=== PATIENT | male | born 1970 | race American Indian/Alaskan Native ===

== ENCOUNTER 2017-04-07 03:42 | Emergency (ER) | payer BC, OTHER ==
[2017-04-07 05:29] LABS: Basophils % (Auto) 0.6 % (0.0-1.8); Eosinophils % (Auto) 1.5 % (0.0-4.3); Hematocrit 59.3 % (35.5-45.6); Hemoglobin 19.7 gm/dl (11.8-15.2); Mean Corpuscular HGB Conc 33 % (32-34); Mean Corpuscular Hemoglobin 32 pg (28-32); Mean Corpuscular Volume 97 fl (84-94); Platelet Count 202 K/mm3 (140-440); Red Blood Count 6.11 M/mm3 (3.65-5.03); Red Cell Distribution Width 15.1 % (13.2-15.2); White Blood Count 8.8 K/mm3 (4.5-11.0)
[2017-04-07 05:38] LABS: Anion Gap 22 mmol/L; BUN/Creatinine Ratio 19.09; Blood Urea Nitrogen 21 mg/dL (9-20); Calcium 9.1 mg/dL (8.4-10.2); Carbon Dioxide 25 mmol/L (22-30); Chloride 97.8 mmol/L (98-107); Glucose 152 mg/dL (75-100); Potassium 4.1 mmol/L (3.6-5.0); Sodium 141 mmol/L (137-145)
--- NOTE | 2017-04-07 10:43 | Emergency Department Report ---
HPI - General Chief Complaint: Chest Pain Time Seen by Provider: 04/07/17 10:23 - HPI HPI: 46-year-old male presents to the emergency department with complaint of intermittent spasmodic chest discomfort since about 7 PM last night. Patient says that he was feeling "off" yesterday but still try to take a walk on the treadmill to try and drop weight but says that he was having some exertional shortness of breath at that time and then shortly afterwards he began having these chest discomforts. It occurs intermittently and there is no aggravating or relieving factors. He has not had one in the past 1.5 hours. He has a past medical history of CHF, diabetes, hypertension. He denies any history of IL, CVA, PE/DVT. 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 He has not taken anything for his symptoms prior to presentation. No recent travel or sick contacts at home. He is not a tobacco smoker. ED Past Medical Hx - Past Medical History Hx Hypertension: Yes Hx Congestive Heart Failure: Yes Hx Diabetes: Yes Hx Asthma: No Hx COPD: No Additional medical history: chronic low back pain, herniated discs. enlarged heart. sleep apnea c CPAP, Defribilator - Surgical History Hx Cholecystectomy: Yes Additional Surgical History: tonsilectomy - Social History Smoking Status: Never Smoker - Medications Home Medications: Home Medications Medication Instructions Recorded Confirmed Last Taken Type Insulin Aspart [NovoLOG Flexpen] 16 unit SQ ACHS 07/27/14 08/04/14 08/03/14 22: 00 History Aspirin [Aspirin BABY CHEW TAB] 81 mg PO QDAY #30 tab.chew 07/28/14 08/04/1408/06 22:00 Rx Carvedilol [Coreg] 12.5 mg PO BID #60 tablet 07/28/14 08/04/14 08/03/14 22:00 Rx Furosemide [Lasix] 40 mg PO DAILY #30 tablet 07/28/14 08/04/14 08/03/14 22:00 Rx Magnesium Oxide [Magnesium] 400 mg PO BID #60 capsule 07/28/14 08/04/14 22:00 Rx Potassium Chloride [K-Dur] 20 meq PO QDAY #30 tablet 07/28/14 08/04/14 08/03/14 22:00 Rx Metolazone 5 mg PO DAILY 08/04/14 08/04/14 08/03/14 22:00 History Losartan [Cozaar] 50 mg PO QDAY #30 tablet 08/09/14 Unknown Rx ED Review of Systems ROS: Stated complaint: CHEST PAIN Other details as noted in HPI Comment: All other systems reviewed and negative Constitutional: denies: chills, fever Eyes: denies: eye pain, eye discharge, vision change ENT: denies: ear pain, throat pain Respiratory: SOB with exertion. denies: shortness of breath Cardiovascular: chest pain. denies: palpitations Gastrointestinal: denies: abdominal pain, nausea, diarrhea Genitourinary: denies: urgency, dysuria Musculoskeletal: denies: back pain, joint swelling, arthralgia Skin: denies: rash, lesions Neurological: denies: headache, weakness, paresthesias Physical Exam - Physical Exam Vital Signs: Vital Signs 04/07/17 04/07/17 04:09 08:09 Temperature 98.5 F 98.3 F Pulse Rate 96 H 96 H Respiratory 16 18 Rate Blood Pressure 129/85 Blood Pressure 129/85 122/91 [Left] O2 Sat by Pulse 98 100 Oximetry Physical Exam: GENERAL: The patient is well-developed well-nourished. HEENT: Normocephalic. Atraumatic. Extraocular motions are intact. Patient has moist mucous membranes. Pupils equal reactive to light bilaterally. NECK: Supple. Trachea is midline. CHEST/LUNGS: Clear to auscultation. No tachypnea or accessory muscle use. There is no respiratory distress noted. HEART/CARDIOVASCULAR: Regular. There is no tachycardia. There is no gallop rub or murmur. ABDOMEN: Abdomen is soft, nontender. Patient has normal bowel sounds. There is no abdominal distention. Obese habitus. SKIN: One plus pitting edema to the bilateral lower extremities from the knees distally. NEURO: The patient is awake, alert, and oriented. The patient is cooperative. The patient has no focal neurologic deficits. The patient has normal speech. MUSCULOSKELETAL: There is no tenderness or deformity. There is no limitation range of motion. There is no evidence of acute injury. ED Course Vital Signs 04/07/17 04/07/17 04:09 08:09 Temperature 98.5 F 98.3 F Pulse Rate 96 H 96 H Respiratory 16 18 Rate Blood Pressure 129/85 Blood Pressure 129/85 122/91 [Left] O2 Sat by Pulse 98 100 Oximetry - Consultations Consultation #1: I spoke with Dr. manisha downey of [facility] who listened to the case presentation and agrees that the patient appears safe for discharge home at this time and they are happy to see him in the next few days in the office for an outpatient follow-up. 04/07/17 12:40 ED Medical Decision Making - Lab Data Result diagrams: 04/07/17 04:46 04/07/17 04:46 - EKG Data -: EKG Interpreted by Me EKG shows normal: sinus rhythm, axis (LAD), intervals, QRS complexes (LVH, Q waves to the inferior leads), ST-T waves Rate: normal - EKG Data When compared to previous EKG there are: previous EKG unavailable Interpretation: other (sinus rhythm, left axis deviation, LVH, Q waves inferior leads) - Radiology Data Radiology results: image reviewed interpreted by me: Chest x-ray shows mild cardio megaly but otherwise there is no signs of CHF, pneumonia or any pneumothorax. - Medical Decision Making 46-year-old male presents to the emergency department with complaint of some chest pain and/or chest wall pain that has been going on intermittently since yesterday. He had some mild exertional shortness of breath always in the treadmill yesterday but that has since resolved and has not returned. He was evaluated with physical exam, labs, imaging and EKG. EKG shows LVH and some Q waves in the inferior leads but otherwise there is no signs of ST elevation IL or dysrhythmia and the EKG appears consistent with the previous one we have from 2013. Labs are mostly unremarkable including negative troponins 2, negative d-dimer, and a low BNP level. Chest x-ray does not show any volume overload or any acute process. Vital signs are stable throughout his ED course. The patient has not had any of the chest pains for over 4 hours and even before that he said that sometimes he could feel of the chest wall twitching and that was the discomfort he mentioned. For all these reasons the patient appears safe for discharge home and cardiology is in agreement and has agreed to follow him outpatient. He will return to the emergency department immediately with any worsening of his symptoms, respiratory distress, or any acute distress. - Differential Diagnosis IL, PE, CHF, pneumonia, costochondritis, muscle spasm Critical Care Time: No Critical care attestation.: If time is entered above; I have spent that time in minutes in the direct care of this critically ill patient, excluding procedure time. ED Disposition Clinical Impression: Hypertension Qualifiers: Hypertension type: essential hypertension Qualified Code(s): I10 - Essential ( primary) hypertension Chest pain Qualifiers: Chest pain type: unspecified Qualified Code(s): R07.9 - Chest pain, unspecified Disposition: DC- TO HOME OR SELFCARE Is pt being admited?: No Condition: Stable Instructions: Chest Pain (ED), Hypertension (ED) Additional Instructions: Please call [facility] tomorrow for an appointment in the next few days with Dr. Steen. Return to the emergency department immediately with any return of her chest pain, shortness of breath, or any acute distress. Referrals: PRIMARY MD MILDRED [Primary Care Provider] - 3-5 Days JESS STEEN MD [Staff Physician] - 3-5 Days TONY POWELL MD [Staff Physician] - 3-5 Days Time of Disposition: 12:35
--- NOTE | 2017-04-07 12:25 | XRay Report ---
AP CHEST: HISTORY: chest pain AP view of the chest demonstrates a normal mediastinal and cardiac contour with clear lungs and normal bony and soft tissue structures. Single lead pacemaker terminates in the right ventricle. IMPRESSION: Unremarkable AP chest.
[2017-04-07 13:07] VITALS: BP 150/102
== END 2017-04-07 13:20 | disposition home or self-care (01) ==
LOC: ED 03:42
DX: I11.0 Hypertensive heart disease with heart failure (principal); I50.9 Heart failure, unspecified; R07.9 Chest pain, unspecified; E11.9 Type 2 diabetes mellitus without complications; Z79.82 Long term (current) use of aspirin
CPT/HCPCS: 36415; 71010; 80048; 83880; 84484; 85025; 85379; 93005; 93010; 99285

== ENCOUNTER 2019-08-01 17:57 | Observation (INO) | payer OTHER, MEDICARE ==
--- NOTE | 2019-08-01 18:32 | XRay Report ---
CHEST 2 VIEWS INDICATION / CLINICAL INFORMATION: Chest Pain. COMPARISON: None available. FINDINGS: SUPPORT DEVICES: None. HEART / MEDIASTINUM: Mild cardiomegaly LUNGS / PLEURA: Trace interstitial edema. Signer Name: Thomas Pillai MD Signed: 08/01/2019 6:27 PM Workstation Name: [id number]
[2019-08-01 18:40] LABS: Basophils # (Auto) 0.1 K/mm3 (0.0-0.1); Basophils % (Auto) 0.7 % (0.0-1.8); Eosinophils # (Auto) 0.2 K/mm3 (0.0-0.4); Eosinophils % (Auto) 1.7 % (0.0-4.3); Hematocrit 45.6 % (35.5-45.6); Hemoglobin 14.6 gm/dl (11.8-15.2); Lymphocytes # (Auto) 3.4 K/mm3 (1.2-5.4); Lymphocytes % (Auto) 37.5 % (13.4-35.0); Mean Corpuscular HGB Conc 32 % (32-34); Mean Corpuscular Volume 84 fl (84-94); Monocytes # (Auto) 0.8 K/mm3 (0.0-0.8); Monocytes % (Auto) 9.4 % (0.0-7.3); Platelet Count 254 K/mm3 (140-440); Red Blood Count 5.45 M/mm3 (3.65-5.03)
[2019-08-01 18:45] LABS: Red Cell Distribution Width 20.4 % (13.2-15.2)
[2019-08-01 18:50] LABS: BUN/Creatinine Ratio 16; Blood Urea Nitrogen 13 mg/dL (9-20); Calcium 8.9 mg/dL (8.4-10.2); Hemolysis Index 64
--- NOTE | 2019-08-01 21:51 | Emergency Department Report ---
ED Chest Pain HPI - General Chief Complaint: Chest Pain Stated Complaint: CHF WITH NEW SYMPTOMS Time Seen by Provider: 08/01/19 20:41 Source: patient Mode of arrival: Ambulatory Limitations: No Limitations - History of Present Illness MD Complaint: chest pain -: Gradual, days(s) (2) Onset: other (during emotional conversation while upset) Pain Location: substernal Pain Radiation: none Severity: mild Severity scale (0 -10): 2 Quality: tightness, aching Consistency: intermittent Improves With: nothing Worsens With: other (arguing) Context: other (Reports hx of CHF and a defibrillator. Reports followed by cardiology Dr. Steen. Reports last cardiac cath approximately 6 years ago showed no plaques. Reports his EF has improved from 13% to approximately 20- 30%. ) re: denies: nausea, vomting, diaphoresis, dyspnea, sense of impending doom Other Symptoms: denies: cough, fever, syncope, rash, acid taste in mouth, leg swelling, palpitations, burping - Related Data Home Medications Medication Instructions Recorded Confirmed Last Taken Ivabradine HCl [Corlanor] 5 mg PO BID 08/01/19 08/01/19 Unknown Liraglutide [Victoza 2-Lee] 0.6 mg SQ QDAY 08/01/19 08/01/19 Unknown Metoprolol Xl [Metoprolol 100 mg PO QDAY 08/01/19 08/01/19 Unknown SUCCINATE ER TAB] Sacubitril/Valsartan [Entresto 1 tab PO DAILY 08/01/19 08/01/19 Unknown 49-51 mg] Previous Rx's Medication Instructions Recorded Last Taken Type Apixaban [Eliquis] 5 mg PO Q12HR #60 tablet 12/15/18 Unknown Rx Allergies Allergy/AdvReac Type Severity Reaction Status Date / Time lisinopril Allergy Shortness Verified 12/12/18 18:26 of Breath Heart Score - HEART Score History: Moderately suspicious EKG: Non-specific Age: 45-65 Risk factors: 1-2 risk factors Troponin: < normal limit HEART Score: 4 ED Review of Systems ROS: Stated complaint: CHF WITH NEW SYMPTOMS Other details as noted in HPI Other: GENERAL: No weight change, fatigue, fever, chills, or night sweats SKIN: No changes in skin or hair, no itching, no rashes, no jaundice HEAD: No trauma EYES: No blurriness, tearing, itching, acute visual loss, conjunctival discoloration, or scleral icterus EARS: No hearing loss, tinnitus, vertigo, or earache NOSE: No rhinorrhea, stuffiness, sneezing, itching, or epistaxis MOUTH: No bleeding gums, hoarseness, sore throat, or swelling CARDIAC: Chest Pain. No new murmur, palpitations, dyspnea on exertion, orthopnea, PND, or edema RESPIRATORY: No shortness of breath, wheeze, cough, sputum production, hemoptysis GI: No nausea, vomiting, dysphagia, diarrhea, constipation, hematemesis, melena, hematochezia, or abdominal pain URINARY: No frequency, urgency, polyuria, dysuria, hematuria, or incontinence MUSCULOSKELETAL: No muscle weakness, joint stiffness, decrease in range of motion, redness, swelling NEUROLOGIC: No headache, syncope, loss of sensation, numbness, tingling, tremors, weakness, paralysis, seizures HEMATOLOGIC: No anemia, easy bruising, bleeding, petechiae, or purpura ENDOCRINE: No hot or cold intolerance, sweating, polyuria, polydipsia or, polyphagia no thyroid problems ED Past Medical Hx - Past Medical History Hx Hypertension: Yes Hx Congestive Heart Failure: Yes Hx Diabetes: Yes Hx Asthma: No Hx COPD: No Additional medical history: chronic low back pain, herniated discs. enlarged heart. sleep apnea c CPAP, Defribilator - Surgical History Hx Pacemaker: Yes (defibrilator) Hx Cholecystectomy: Yes Additional Surgical History: tonsilectomy - Social History Smoking Status: Current Every Day Smoker Substance Use Type: None - Medications Home Medications: Home Medications Medication Instructions Recorded Confirmed Last Taken Type Apixaban [Eliquis] 5 mg PO Q12HR #60 tablet 12/15/18 08/01/19 Unknown Rx Ivabradine HCl [Corlanor] 5 mg PO BID 08/01/19 08/01/19 Unknown History Liraglutide [Victoza 2-Lee] 0.6 mg SQ QDAY 08/01/19 08/01/19 Unknown History Metoprolol Xl [Metoprolol 100 mg PO QDAY 08/01/19 08/01/19 Unknown History SUCCINATE ER TAB] Sacubitril/Valsartan [Entresto 1 tab PO DAILY 08/01/19 08/01/19 Unknown History 49-51 mg] ED Physical Exam - General Limitations: No Limitations - Other Other exam information: GENERAL: Patient in no acute distress HEAD: Normocephalic, atraumatic EYES: PERRLA, EOM intact, no scleral icterus, no conjunctival hemorrhage, visual willis and acuity wnl NOSE: No tenderness, discharge, sinus tenderness MOUTH: No erythema, bleeding, exudate HEART: Regular rate and rhythm, no murmur, S1-S2 are auscultated, no edema, pulses are symmetric LUNGS: No respiratory distress. Bilateral breath sounds, No tachypnea, No retractions, No wheezing, rales, rhonchi ABDOMEN: Normal bowel sounds, abdomen soft, no tenderness, no rebound, no guarding, no distention, no masses, no CVA tenderness MUSCULOSKELETAL: Normal joint range of motion, no redness, no swelling, no tenderness NEUROLOGIC: GCS 15, Alert and Oriented x3, Cranial nerves intact, normal sensation, normal strength, no cerebellar deficit, NIHSS 0 SKIN: Skin is warm and dry, no wounds, no rashes ED Course Vital Signs 08/01/19 08/01/19 08/01/19 18:04 21:16 21:30 Temperature 97.9 F Pulse Rate 98 H 83 82 Respiratory 18 15 11 L Rate Blood Pressure 145/98 146/96 157/94 O2 Sat by Pulse 96 96 96 Oximetry 08/01/19 21:46 Temperature Pulse Rate 76 Respiratory 13 Rate Blood Pressure 157/94 O2 Sat by Pulse 97 Oximetry FERMIN score - Fermin Score Age > 65: (0) No Aspirin use within the Past 7 Days: (0) No 3 or more CAD Risk Factors: (0) No 2 or more Angina events in past 24 hrs: (0) No Known CAD with more than 50% Stenosis: (0) No Elevated Cardiac Markers: (0) No ST Deviation Greater than 0.5mm: (0) No FERMIN Score: 0 ED Medical Decision Making - Lab Data Result diagrams: 08/01/19 18:11 08/01/19 18:11 Laboratory Results - last 24 hr 08/01/19 08/01/19 08/01/19 18:11 18:11 21:06 WBC 8.9 RBC 5.45 H Hgb 14.6 Hct 45.6 MCV 84 MCH 27 L MCHC 32 RDW 20.4 H Plt Count 254 Lymph % (Auto) 37.5 H Oliver % (Auto) 9.4 H Eos % (Auto) 1.7 Baso % (Auto) 0.7 Lymph # 3.4 Oliver # 0.8 Eos # 0.2 Baso # 0.1 Seg Neutrophils % 50.7 Seg Neutrophils # 4.5 Sodium 139 Potassium 4.1 Chloride 101.6 Carbon Dioxide 25 Anion Gap 17 BUN 13 Creatinine 0.8 Estimated GFR > 60 BUN/Creatinine Ratio 16 Glucose 135 H Calcium 8.9 Troponin T < 0.010 < 0.010 - EKG Data When compared to previous EKG there are: no significant change - Radiology Data Radiology results: report reviewed - Medical Decision Making Patient comfortable. Reports symptom improvement. Updated with results. Plan admit for further evaluation. Hospitalist updated and accepts admission. Critical care attestation.: If time is entered above; I have spent that time in minutes in the direct care of this critically ill patient, excluding procedure time. ED Disposition Clinical Impression: Chest pain Qualifiers: Chest pain type: unspecified Qualified Code(s): R07.9 - Chest pain, unspecified Disposition: OP ADMIT IP TO THIS HOSP Is pt being admited?: Yes Condition: Stable Instructions: Chest Pain (ED) Referrals: PRIMARY CARE, [Primary Care Provider] - 3-5 Days
[2019-08-01] MEDS ORDERED: ONDANSETRON 4 MG/2 ML INJ IV PRN (23:11)
[2019-08-01] MEDS ORDERED: MORPHINE 2 MG/1 ML INJ IV PRN (23:11)
[2019-08-01] MEDS ORDERED: ACETAMINOPHEN 325 MG TAB PO PRN (23:11)
--- NOTE | 2019-08-01 23:11 | History and Physical Report ---
History of Present Illness Date of examination: 08/01/19 History of present illness: 48-year-old man a history of CHF, sleep apnea, hypertension, diabetes, A. fib, comes to the emergency room because of chest pain. Pain started yesterday after arguing with some children. Pain is in the epigastric area, tightmess , inter mittent every 3 minutes, intensity 4/10, no radiation, cannot identify exacerbating or relieving factors. Denies nausea, vomiting, shortness of breath, palpitations, diaphoresis Review of systems Constitutional: no weight loss, chills, fever Ears, eyes, nose, mouth and throat: no nasal congestion, no nasal discharge, no sinus pressure, no vision change, no red eye. Neck: No neck pain or rigidity. Cardiovascular: no palpitations Respiratory: no cough, shortness of breath Gastrointestinal: no hematochezia, abdominal pain Genitourinary : no frequency , no hematuria Musculoskeletal: no joint swelling or muscle ache Integumentary: no rash, no pruritis Neurological: no parathesias, no focal weakness Endocrine: no cold or heat intolerance, no polyuria or polydipsia Hematologic/Lymphatic: no easy bruising, no easy bleeding, no gland swelling Allergic/Immunologic: no urticaria, no angioedema. PAST MEDICAL HISTORY: CHF, sleep apnea, hypertension, diabetes, A. fib PAST SURGICAL HISTORY: Cholecystectomy, tonsillectomy, varicose vein surgery SOCIAL HISTORY: Denies alcohol, drugs, tobacco FAMILY HISTORY: Hypertension, CAD Medications and Allergies Allergies Allergy/AdvReac Type Severity Reaction Status Date / Time lisinopril Allergy Shortness Verified 12/12/18 18:26 of Breath Home Medications Medication Instructions Recorded Confirmed Last Taken Type Apixaban [Eliquis] 5 mg PO Q12HR #60 tablet 12/15/18 08/01/19 Unknown Rx Ivabradine HCl [Corlanor] 5 mg PO BID 08/01/19 08/01/19 Unknown History Liraglutide [Victoza 2-Lee] 0.6 mg SQ QDAY 08/01/19 08/01/19 Unknown History Metoprolol Xl [Metoprolol 100 mg PO QDAY 08/01/19 08/01/19 Unknown History SUCCINATE ER TAB] Sacubitril/Valsartan [Entresto 1 tab PO DAILY 08/01/19 08/01/19 Unknown History 49-51 mg] Exam - Physical Exam Narrative exam: General Apperance: The patient lying in bed, breathing comfortable HEENT: Normocephalic, atraumatic. Pupils equally round and reactive to light, EOMI, no sclericterus or JVD or thyromegaly or nodule. , no carotid bruit, mucous membranes moist, no exudate or erythema Heart: S1-S2 Lungs: Clear to auscultation bilaterally, breathing comfortable Abdomen: Positive bowel sounds, soft, nontender, nondistended, no organomegaly Extremities: No edema cyanosis clubbing Skin: no rash, nodule, warm and dry Neuro: cranial nerves 2-12 intact, speech is fluent, motor/sensory intact - Constitutional Vitals: Temp Pulse Resp BP Pulse Ox 97.9 F 76 13 157/94 97 08/01/19 18:04 08/01/19 21:46 08/01/19 21:46 08/01/19 21:46 08/01/19 21:46 Results - Labs CBC & Chem 7: 08/01/19 18:11 08/01/19 18:11 Labs: Abnormal lab results 08/01/19 08/01/19 Range/Units 18:11 18:11 RBC 5.45 H (3.65-5.03) M/mm3 MCH 27 L (28-32) pg RDW 20.4 H (13.2-15.2) % Lymph % (Auto) 37.5 H (13.4-35.0) % [place] % (Auto) 9.4 H (0.0-7.3) % Glucose 135 H (75-100) mg/dL Assessment and Plan Assessment chest pain A. fib CHF, stable Hypertension Diabetes Sleep apnea Plan Admit to medicine Check cardiac enzymes,obtain stress test, consult cardiology Check fingersticks, initiate insulin sliding-scale Continue appropriate outpatient medications DVT prophylaxis
[2019-08-01] MEDS ORDERED: DEXTROSE 50% IN WATER (25GM) 50 ML SYRINGE IV PRN (23:22)
[2019-08-01] MEDS ORDERED: FUROSEMIDE 40 MG/4 ML INJ IV ONE (23:44)
[2019-08-02 00:59] LABS: Creatine Kinase MB 1.3 ng/mL (0.0-4.0)
[2019-08-02 07:46] LABS: Basophils # (Auto) 0.1 K/mm3 (0.0-0.1); Eosinophils # (Auto) 0.2 K/mm3 (0.0-0.4); Eosinophils % (Auto) 3.1 % (0.0-4.3); Hematocrit 46.1 % (35.5-45.6); Hemoglobin 14.6 gm/dl (11.8-15.2); Lymphocytes # (Auto) 2.8 K/mm3 (1.2-5.4); Lymphocytes % (Auto) 35.4 % (13.4-35.0); Mean Corpuscular HGB Conc 32 % (32-34); Mean Corpuscular Volume 84 fl (84-94); Monocytes # (Auto) 0.6 K/mm3 (0.0-0.8); Monocytes % (Auto) 7.5 % (0.0-7.3); Platelet Count 250 K/mm3 (140-440)
[2019-08-02 07:57] LABS: Red Cell Distribution Width 20.4 % (13.2-15.2)
[2019-08-02 08:05] LABS: BUN/Creatinine Ratio 17; Blood Urea Nitrogen 12 mg/dL (9-20); Calcium 8.9 mg/dL (8.4-10.2); Hemolysis Index 6
[2019-08-02 08:07] LABS: Creatine Kinase MB 1.3 ng/mL (0.0-4.0)
[2019-08-02] MEDS: INSULIN LISPRO 100 UNIT/ML SUB-Q SCH ×2 (08:20→11:30)
[2019-08-02] MEDS ORDERED: METOPROLOL SUCCINATE XL 100 MG TAB PO SCH (10:00)
[2019-08-02] MEDS ORDERED: ENOXAPARIN 40 MG/0.4 ML INJ SUB-Q SCH (10:00)
[2019-08-02] MEDS ORDERED: APIXABAN 5 MG TAB PO SCH (10:00)
[2019-08-02] MEDS ORDERED: SACUBITRIL/VALSARTAN 49-51 MG TAB PO SCH (10:00)
[2019-08-02] MEDS ORDERED: IVABRADINE HCL 5 MG PO SCH (10:00)
[2019-08-02] MEDS ORDERED: ENOXAPARIN 30 MG/0.3 ML INJ SUB-Q SCH (10:00)
[2019-08-02] MEDS ORDERED: LIRAGLUTIDE 0.6 MG SQ SCH (10:00)
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
[2019-08-02 12:13] VITALS: BP 143/94
--- NOTE | 2019-08-02 12:35 | Discharge Summary ---
Providers - Providers Date of Admission: 08/01/19 23:11 Date of discharge: 08/02/19 Attending physician: EARNESTINE VASQUEZ 08/01/19 23:11 Consult to Physician [CONS] Routine Comment: Consulting Provider: JESS KENYON Physician Instructions: Reason For Exam: cp Primary care physician: JUAN CARLOS KENYON Hospitalization Condition: Stable Pertinent studies: CXR: Trace interstitial edema Procedures: None Hospital course: Final discharge diagnosis: Acute atypical chest pain, likely stress-induced Chronic A. fib on oral anticoagulation Chronic systolic HF with EF of 20-25% s/p AICD placement Hypertension DM2 Obstructive sleep apnea Morbid obesity with BMI of 44.9 Hospital course: Pt was admitted and placed on chest pain pathway. Serial troponin levels done were negative. For his other comorbidities, he was continued on his home medications. Thereafter, he was evaluated by the machine applicator cementer who recommended no further investigative testing. He was then cleared for discharge with clinic follow-up. At discharge, patient was chest pain-free. Disposition: DC TO HOME OR SELFCARE Time spent for discharge: 30 Minutes Core Measure Documentation - Palliative Care Palliative Care/ Comfort Measures: Not Applicable - Core Measures Any of the following diagnoses?: none Exam - Constitutional Vitals: Temp Pulse Resp BP Pulse Ox 97.9 F 84 19 143/94 99 08/02/19 11:30 08/02/19 11:30 08/02/19 11:30 08/02/19 11:30 08/02/19 11:30 General appearance: Present: no acute distress, obese - EENT Eyes: Present: PERRL, EOM intact ENT: hearing intact, clear oral mucosa - Neck Neck: Present: supple, normal ROM - Respiratory Respiratory effort: normal Respiratory: bilateral: CTA - Cardiovascular Rhythm: regular Heart Sounds: Present: S1 & S2. Absent: rub, click - Extremities Extremities: pulses symmetrical, No edema - Abdominal General gastrointestinal: Present: soft, non-tender, non-distended, normal bowel sounds Male genitourinary: Present: deferred - Integumentary Integumentary: Present: clear, warm, dry - Musculoskeletal Musculoskeletal: gait normal, strength equal bilaterally - Psychiatric Psychiatric: appropriate mood/affect, intact judgment & insight - Neurologic Neurologic: CNII-XII intact, moves all extremities Plan Follow up with: PRIMARY CARE, [Referring] - 3-5 Days
== END 2019-08-02 14:00 | disposition home or self-care (01) ==
LOC: ED 17:57 → 4A 23:11
PROVIDERS: ADMIT Internal Medicine; ATTEND Internal Medicine
DX: R07.89 Other chest pain (principal); I11.0 Hypertensive heart disease with heart failure; I50.9 Heart failure, unspecified; I48.91 Unspecified atrial fibrillation; E11.9 Type 2 diabetes mellitus without complications; G47.30 Sleep apnea, unspecified; Z90.49 Acquired absence of other specified parts of digestive tract; Z98.890 Other specified postprocedural states
CPT/HCPCS: 36415; 71046; 80048; 82550; 82553; 82962; 84484; 85025; 87116; 93005; 93010; 96374; 99284; G0378; J1940

== ENCOUNTER 2019-10-31 03:20 | Emergency (ER) | payer OTHER, MEDICARE ==
--- NOTE | 2019-10-31 04:12 | XRay Report ---
CHEST 1 VIEW 10/31/2019 3:56 AM INDICATION / CLINICAL INFORMATION: Chest pain for 2 days. COMPARISON: 2 views of the chest from 08/01/2019. FINDINGS: SUPPORT DEVICES: Stable left ICD. HEART / MEDIASTINUM: Stable. LUNGS / PLEURA: No significant pulmonary or pleural abnormality. No pneumothorax. ADDITIONAL FINDINGS: No significant additional findings. IMPRESSION: 1. No acute abnormality of the chest. 2. Stable mild cardiomegaly. Signer Name: Zach Rodriguez MD Signed: 10/31/2019 4:08 AM Workstation Name: [id number]
[2019-10-31 04:16] LABS: Basophils # (Auto) 0.1 K/mm3 (0.0-0.1); Basophils % (Auto) 1.1 % (0.0-1.8); Eosinophils # (Auto) 0.1 K/mm3 (0.0-0.4); Eosinophils % (Auto) 0.9 % (0.0-4.3); Hematocrit 44.9 % (35.5-45.6); Hemoglobin 14.2 gm/dl (11.8-15.2); Lymphocytes # (Auto) 3.6 K/mm3 (1.2-5.4); Lymphocytes % (Auto) 34.5 % (13.4-35.0); Mean Corpuscular HGB Conc 32 % (32-34); Mean Corpuscular Volume 81 fl (84-94); Monocytes % (Auto) 9.3 % (0.0-7.3); Platelet Count 326 K/mm3 (140-440); Red Blood Count 5.57 M/mm3 (3.65-5.03); Red Cell Distribution Width 17.4 % (13.2-15.2)
[2019-10-31 04:36] LABS: BUN/Creatinine Ratio 16; Blood Urea Nitrogen 13 mg/dL (9-20); Calcium 8.7 mg/dL (8.4-10.2); Hemolysis Index 38
[2019-10-31] MEDS ORDERED: KETOROLAC 60 MG/2 ML INJ IM ONE (06:22)
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
[2019-10-31 08:32] VITALS: BP 104/70
== END 2019-10-31 08:32 | disposition home or self-care (01) ==
LOC: ED 03:20
DX: R07.89 Other chest pain (principal); M54.9 Dorsalgia, unspecified; I11.0 Hypertensive heart disease with heart failure; E11.9 Type 2 diabetes mellitus without complications; I50.9 Heart failure, unspecified; Z98.890 Other specified postprocedural states; Z90.49 Acquired absence of other specified parts of digestive tract; Z79.899 Other long term (current) drug therapy; Z88.8 Allergy status to other drugs, medicaments and biological substances
CPT/HCPCS: 36415; 71045; 80048; 84484; 85025; 93005; 93010; 96372; 99284; J1885

== ENCOUNTER 2020-07-04 11:44 | Emergency (ER) | payer OTHER, MEDICARE ==
[2020-07-04 12:04] VITALS: BP 116/69
--- NOTE | 2020-07-04 17:04 | Emergency Department Report ---
ED Dizziness HPI - General Chief Complaint: Dizziness Stated Complaint: LOW BLOOD PRESSURE/DIZZY Time Seen by Provider: 07/04/20 17:02 Source: patient Mode of arrival: Ambulatory Limitations: No Limitations - History of Present Illness Initial Comments: Chief complaint: I think my blood pressure was too low. The medication is too strong." HPI this is a 49-year-old male with history of congestive heart failure, atrial fibrillation, diabetes mellitus who presents with lightheadedness for the past 3 days. He thinks that his blood pressure medicine is too strong for him. When he would stand up from a sitting position he developed like headedness. He takes four antihypertensive medications and in addition to diuretic spironolactone. Over the past 4 months he has intentionally lost 80 pounds with diet and exercise. Today while standing in line to vote, he felt as if he is going to pass out after prolonged standing. He took his blood pressure which was low 85/55 on several readings. He plans to stop taking 3 his antihypertensive medications until he sees his disability benefits specialist Dr. Steen. Complaint: dizziness, lightheadedness -: Gradual, days(s) (3) Timing: gradual onset Description: lightheadedness History of Same: No History of Trauma: No Severity: mild Improves With: rest Worsens With: position Associated Symptoms: denies other symptoms - Related Data Home Medications Medication Instructions Recorded Confirmed Last Taken Ivabradine HCl [Corlanor] 5 mg PO BID 08/01/19 08/01/19 Unknown Liraglutide [Victoza 2-Lee] 0.6 mg SQ QDAY 08/01/19 08/01/19 Unknown Metoprolol Xl [Metoprolol 100 mg PO QDAY 08/01/19 08/01/19 Unknown SUCCINATE ER TAB] Sacubitril/Valsartan [Entresto 1 tab PO DAILY 08/01/19 08/01/19 Unknown 49-51 mg] Previous Rx's Medication Instructions Recorded Last Taken Type Apixaban [Eliquis] 5 mg PO Q12HR #60 tablet 12/15/18 Unknown Rx Cyclobenzaprine [Flexeril] 10 mg PO TID PRN #12 tablet 10/31/19 Unknown Rx Famotidine [Pepcid] 20 mg PO BID #20 tablet 03/31/20 Unknown Rx HYDROcodone/APAP 5-325 [[place] 1 each PO Q6HR PRN #14 tablet 03/31/20 Unknown Rx 5/325] Ondansetron [Zofran Odt] 4 mg PO Q8HR PRN #14 tab.rapdis 03/31/20 Unknown Rx Allergies Allergy/AdvReac Type Severity Reaction Status Date / Time lisinopril Allergy Shortness Verified 12/12/18 18:26 of Breath ED Review of Systems ROS: Stated complaint: LOW BLOOD PRESSURE/DIZZY Other details as noted in HPI Comment: All other systems reviewed and negative Constitutional: denies: fever, malaise Respiratory: denies: cough, shortness of breath Cardiovascular: denies: chest pain Gastrointestinal: denies: abdominal pain, nausea, vomiting ED Past Medical Hx - Past Medical History Hx Hypertension: Yes Hx Congestive Heart Failure: Yes Hx Diabetes: Yes Hx Asthma: No Hx COPD: No Additional medical history: chronic low back pain, herniated discs. enlarged heart. sleep apnea c CPAP, Defribilator - Surgical History Hx Pacemaker: Yes (defibrilator) Hx Internal Defibrillator: Yes Hx Cholecystectomy: Yes Additional Surgical History: tonsilectomy - Social History Smoking Status: Never Smoker Substance Use Type: None - Medications Home Medications: Home Medications Medication Instructions Recorded Confirmed Last Taken Type Apixaban [Eliquis] 5 mg PO Q12HR #60 tablet 12/15/18 08/01/19 Unknown Rx Ivabradine HCl [Corlanor] 5 mg PO BID 08/01/19 08/01/19 Unknown History Liraglutide [Victoza 2-Lee] 0.6 mg SQ QDAY 08/01/19 08/01/19 Unknown History Metoprolol Xl [Metoprolol 100 mg PO QDAY 08/01/19 08/01/19 Unknown History SUCCINATE ER TAB] Sacubitril/Valsartan [Entresto 1 tab PO DAILY 08/01/19 08/01/19 Unknown History 49-51 mg] Cyclobenzaprine [Flexeril] 10 mg PO TID PRN #12 tablet 10/31/19 Unknown Rx Famotidine [Pepcid] 20 mg PO BID #20 tablet 03/31/20 Unknown Rx HYDROcodone/APAP 5-325 [[place] 1 each PO Q6HR PRN #14 tablet 03/31/20 Unknown Rx 5/325] Ondansetron [Zofran Odt] 4 mg PO Q8HR PRN #14 tab.rapdis 03/31/20 Unknown Rx ED Physical Exam - General Limitations: No Limitations General appearance: alert, in no apparent distress - Head Head exam: Present: atraumatic, normocephalic - Eye Eye exam: Present: normal appearance - ENT ENT exam: Present: mucous membranes moist - Neck Neck exam: Present: normal inspection, full ROM - Respiratory Respiratory exam: Present: normal lung sounds bilaterally. Absent: respiratory distress, wheezes, rales, rhonchi - Cardiovascular Cardiovascular Exam: Present: regular rate, normal rhythm, normal heart sounds. Absent: systolic murmur, diastolic murmur, rubs, gallop - GI/Abdominal GI/Abdominal exam: Present: soft, normal bowel sounds. Absent: distended, tenderness, guarding, rebound - Rectal Rectal exam: Present: deferred - Extremities Exam Extremities exam: Present: normal inspection - Back Exam Back exam: Present: normal inspection - Neurological Exam Neurological exam: Present: alert, oriented X3 - Psychiatric Psychiatric exam: Present: normal affect, normal mood - Skin Skin exam: Present: warm, dry, intact, normal color. Absent: rash ED Course Vital Signs 07/04/20 12:01 Temperature 97.8 F Pulse Rate 72 Respiratory 20 Rate Blood Pressure 116/69 [Right] O2 Sat by Pulse 96 Oximetry ED Medical Decision Making - Medical Decision Making This is a 49-year-old male with history of atrial fibrillation, congestive heart failure and diabetes mellitus who presents with hypotension. I agree with patient. After intentional 80 pound weight loss over the past 4 months, he will not need his entire antihypertensive medication regimen. I encouraged him to continue taking diuretic spironolactone. He will continue to take Eliquis. He plans to hold his antihypertensive medications until he is seen by Dr. Celsa Rubin next week. He will also monitor his blood pressure with his home blood pressure cuff. I do not suspect arrhythmia, anemia, metabolic derangement as a cause of his lightheadedness. He describes orthostasis with documented low blood pressure. Patient understands return precautions. Also provided referral to outpatient medicine physician. Critical care attestation.: If time is entered above; I have spent that time in minutes in the direct care of this critically ill patient, excluding procedure time. ED Disposition Clinical Impression: Iatrogenic hypotension, Recent weight loss, Lightheadedness Disposition: DC-01 TO HOME OR SELFCARE Is pt being admited?: No Does the pt Need Aspirin: No Condition: Stable Additional Instructions: Please monitor your blood pressure readings on a daily basis. Please document the readings in order to discuss with your disability benefits specialist. Referrals: JESS STEEN MD [Staff Physician] - 7-10 days
== END 2020-07-04 17:14 | disposition home or self-care (01) ==
LOC: ED 11:44
DX: I95.89 Other hypotension (principal); R63.4 Abnormal weight loss; R42 Dizziness and giddiness; I11.0 Hypertensive heart disease with heart failure; I50.9 Heart failure, unspecified; E11.9 Type 2 diabetes mellitus without complications; Z90.49 Acquired absence of other specified parts of digestive tract; Z88.8 Allergy status to other drugs, medicaments and biological substances; Z79.899 Other long term (current) drug therapy; Z95.810 Presence of automatic (implantable) cardiac defibrillator
CPT/HCPCS: 99282

== ENCOUNTER 2020-11-19 16:39 | Emergency (ER) | payer MEDICARE, OTHER ==
[2020-11-19 16:55] VITALS: BP 134/87
--- NOTE | 2020-11-19 17:08 | Emergency Department Report ---
ED General Adult HPI - General Chief complaint: Extremity Injury, Lower Stated complaint: RIGHT FOOT BIG TOE INFECTION Time Seen by Provider: 11/19/20 16:46 Source: patient Mode of arrival: Ambulatory Limitations: No Limitations - History of Present Illness Initial comments: 50-year-old male with type 2 diabetes presents to the ER today complaint of righ t great toe pain and stating that his nail is falling off his right great toe. Patient states that he accidentally injured his right great toe back in July. He states he noticed that he had blood only the toenail after the injury. He states that he did have some pain after the injury but it went away but gradually the toenail started to turn color, and started to become loose. He states that in the past couple days he noticed that the toenail was starting to fall off. Yesterday he started to have pain around the nail folds and to the fat pad of the right great toenail. He reports numbness to toe and he reports redness around the lateral nail fold and around the fat pad since yesterday. He states that when he got injured back in July he did not seek medical treatment. He states that he did see his clinical educator twice since the injury but it was for a different issue. He did have x-ray of both feet during his podiatry visit. He states that he does have an appointment with his clinical educator this coming , given the appearance of the toenail and his toe he was concerned decided come and get checked out. He denies any fever or chills or any other symptoms at this time. MD Complaint: Right great Toe pain/Nail falling off -: Gradual, month(s) - Related Data Home Medications Medication Instructions Recorded Confirmed Last Taken Ivabradine HCl [Corlanor] 5 mg PO BID 08/01/19 08/01/19 Unknown Liraglutide [Victoza 2-Lee] 0.6 mg SQ QDAY 08/01/19 08/01/19 Unknown Metoprolol Xl [Metoprolol 100 mg PO QDAY 08/01/19 08/01/19 Unknown SUCCINATE ER TAB] Sacubitril/Valsartan [Entresto 1 tab PO DAILY 08/01/19 08/01/19 Unknown 49-51 mg] Previous Rx's Medication Instructions Recorded Last Taken Type Apixaban [Eliquis] 5 mg PO Q12HR #60 tablet 03/25/19 Unknown Rx Cyclobenzaprine [Flexeril] 10 mg PO TID PRN #12 tablet 10/31/19 Unknown Rx Famotidine [Pepcid] 20 mg PO BID #20 tablet 03/31/20 Unknown Rx Ondansetron [Zofran Odt] 4 mg PO Q8HR PRN #14 tab.rapdis 03/31/20 Unknown Rx HYDROcodone/APAP 5-325 [[place] 1 each PO Q6HR PRN #12 tablet 11/19/20 Unknown Rx 5-325 mg TAB] cephALEXin [Keflex] 500 mg PO Q6HR #40 capsule 11/19/20 Unknown Rx Allergies Allergy/AdvReac Type Severity Reaction Status Date / Time lisinopril Allergy Shortness Verified 12/12/18 18:26 of Breath ED Review of Systems ROS: Stated complaint: RIGHT FOOT BIG TOE INFECTION Other details as noted in HPI Comment: All other systems reviewed and negative Musculoskeletal: other (Right great toe pain and swelling) Skin: change in hair/nails ED Past Medical Hx - Past Medical History Previous Medical History?: Yes Hx Hypertension: Yes Hx Congestive Heart Failure: Yes Hx Diabetes: Yes Hx Asthma: No Hx COPD: No Additional medical history: chronic low back pain, herniated discs. enlarged heart. sleep apnea c CPAP, Defribilator - Surgical History Past Surgical History?: Yes Hx Pacemaker: Yes (defibrilator) Hx Internal Defibrillator: Yes Hx Cholecystectomy: Yes Additional Surgical History: tonsilectomy - Social History Smoking Status: Never Smoker Substance Use Type: Alcohol - Medications Home Medications: Home Medications Medication Instructions Recorded Confirmed Last Taken Type Apixaban [Eliquis] 5 mg PO Q12HR #60 tablet 12/15/18 08/01/19 Unknown Rx Ivabradine HCl [Corlanor] 5 mg PO BID 08/01/19 08/01/19 Unknown History Liraglutide [Victoza 2-Lee] 0.6 mg SQ QDAY 08/01/19 08/01/19 Unknown History Metoprolol Xl [Metoprolol 100 mg PO QDAY 08/01/19 08/01/19 Unknown History SUCCINATE ER TAB] Sacubitril/Valsartan [Entresto 1 tab PO DAILY 08/01/19 08/01/19 Unknown History 49-51 mg] Cyclobenzaprine [Flexeril] 10 mg PO TID PRN #12 tablet 10/31/19 Unknown Rx Famotidine [Pepcid] 20 mg PO BID #20 tablet 03/31/20 Unknown Rx Ondansetron [Zofran Odt] 4 mg PO Q8HR PRN #14 tab.rapdis 03/31/20 Unknown Rx HYDROcodone/APAP 5-325 [[place] 1 each PO Q6HR PRN #12 tablet 11/19/20 Unknown Rx 5-325 mg TAB] cephALEXin [Keflex] 500 mg PO Q6HR #40 capsule 11/19/20 Unknown Rx ED Physical Exam - General Limitations: No Limitations General appearance: alert, in no apparent distress - Respiratory Respiratory exam: Absent: respiratory distress - Cardiovascular Cardiovascular Exam: Present: regular rate - Extremities Exam Extremities exam: Present: other (Right great toe nail is bluish/juanjo discoloration and is almost fully avulsed. He does have mild swelling and erythema and moderate ttp mainly lateral nail fold on the medial aspect of toe and to fat pad of toe; No streaking redness. cap refill nl, flex and ext of toe nl, sensation toe intact. ) - Neurological Exam Neurological exam: Present: alert, oriented X3, CN II-XII intact, normal gait - Psychiatric Psychiatric exam: Present: normal mood ED Course Vital Signs 11/19/20 16:52 Temperature 98.2 F Pulse Rate 89 Respiratory 18 Rate Blood Pressure 134/87 O2 Sat by Pulse 96 Oximetry ED Medical Decision Making - Medical Decision Making Pt likely had subungual hematoma from his injury July causing toenail avulsi on. on exam today pt right great toenail is noted to be hanging on by small peice of skin in lateral nail fold. Its almost fully avulsed. I clipped the small peice of skin holding toenail with a scissor and removed toenail. No active bleeding. Dried blood noted underneath toenail and mildly to nail bed. No apparent open wounds noted to nail bed or fold. There is mild swelling and cellulitis along the lateral nail fold and the fat pad of the distal great toe. No streaking cellulitis. No evidence of infectious tenosynovitis or gangrene. No indication for IV antibiotics or work-up at this time. Patient will be started on oral antibiotics. He was instructed to keep his appoint with his clinical educator this . Patient expressed understanding of instructions and agree with plan. Patient was stable at time of discharge Critical care attestation.: If time is entered above; I have spent that time in minutes in the direct care of this critically ill patient, excluding procedure time. ED Disposition Clinical Impression: Cellulitis of toe of right foot, Toenail avulsion Disposition: TO HOME OR SELFCARE Is pt being admited?: No Does the pt Need Aspirin: No Condition: Stable Instructions: Nail Avulsion, Cellulitis, Adult, [id number] Additional Instructions: Take the antibiotics as prescribed. Keep toe clean soap and water, dry well, then apply neosporin after cleaning. Keep Your appointment with Dr Galeas . Return to ED if worse. Prescriptions: cephALEXin [Keflex] 500 mg PO Q6HR #40 capsule HYDROcodone/APAP 5-325 [[place] 5-325 mg TAB] 1 each PO Q6HR PRN #12 tablet PRN Reason: Pain Referrals: YADIRA GALEAS DPM [Staff Physician] - 3-5 Days Time of Disposition: 17:07
== END 2020-11-19 17:10 | disposition home or self-care (01) ==
LOC: ED 16:39
DX: S91.201A Unspecified open wound of right great toe with damage to nail, initial encounter (principal); L03.031 Cellulitis of right toe; I11.0 Hypertensive heart disease with heart failure; I50.9 Heart failure, unspecified; E11.9 Type 2 diabetes mellitus without complications; Z90.49 Acquired absence of other specified parts of digestive tract; Z90.89 Acquired absence of other organs; Z98.890 Other specified postprocedural states; Z79.899 Other long term (current) drug therapy; Z88.8 Allergy status to other drugs, medicaments and biological substances; X58.XXXA Exposure to other specified factors, initial encounter; Y93.89 Activity, other specified; Y92.89 Other specified places as the place of occurrence of the external cause; Y99.8 Other external cause status
CPT/HCPCS: 99282

== ENCOUNTER 2021-01-27 18:33 | Emergency (ER) | payer OTHER ==
[2021-01-27 18:54] VITALS: BP 141/86
--- NOTE | 2021-01-27 20:26 | XRay Report ---
LEFT SHOULDER 3 VIEW(S) INDICATION / CLINICAL INFORMATION: Fall left shoulder pain COMPARISON: None available. FINDINGS: BONES / JOINT(S): No acute fracture or subluxation. Mild degenerative changes. SOFT TISSUES: No significant abnormality. ADDITIONAL FINDINGS: None. Signer Name: Lowell Le MD Signed: 01/27/2021 8:22 PM Workstation Name: [id number]
[2021-01-28] MEDS ORDERED: KETOROLAC 30 MG/1 ML INJ IM ONE (02:44)
--- NOTE | 2021-01-28 02:44 | Emergency Department Report ---
ED General Adult HPI - General Chief complaint: Shoulder Injury Stated complaint: FALL Time Seen by Provider: 01/28/21 02:34 Source: patient Mode of arrival: Ambulatory Limitations: No Limitations - History of Present Illness Initial comments: 50-year-old -[place] male patient presents with complaints of left shoulder pain after a fall injury 2 days ago. He states the pain occurs mostly with movement of the shoulder and denies any numbness/tingling/weakness in his arm or hand. Patient states his range of motion is limited by the pain. Pain worsened after taking a hot shower per patient. He denies any other injuries. Patient rates his pain as a 9/10 in severity and states it did not improve with Tylenol -: Sudden Severity scale (0 -10): 10 - Related Data Home Medications Medication Instructions Recorded Confirmed Last Taken Ivabradine HCl [Corlanor] 5 mg PO BID 08/01/19 08/01/19 Unknown Liraglutide [Victoza 2-Lee] 0.6 mg SQ QDAY 08/01/19 08/01/19 Unknown Metoprolol Xl [Metoprolol 100 mg PO QDAY 08/01/19 08/01/19 Unknown SUCCINATE ER TAB] Sacubitril/Valsartan [Entresto 1 tab PO DAILY 08/01/19 08/01/19 Unknown 49-51 mg] Previous Rx's Medication Instructions Recorded Last Taken Type Apixaban [Eliquis] 5 mg PO Q12HR #60 tablet 12/15/18 Unknown Rx Cyclobenzaprine [Flexeril] 10 mg PO TID PRN #12 tablet 10/31/19 Unknown Rx Famotidine [Pepcid] 20 mg PO BID #20 tablet 03/31/20 Unknown Rx Ondansetron [Zofran Odt] 4 mg PO Q8HR PRN #14 tab.rapdis 03/31/20 Unknown Rx HYDROcodone/APAP 5-325 [[place] 1 each PO Q6HR PRN #12 tablet 11/19/20 Unknown Rx 5-325 mg TAB] cephALEXin [Keflex] 500 mg PO Q6HR #40 capsule 11/19/20 Unknown Rx Naproxen 500 mg PO BID PRN #20 tablet 01/28/21 Unknown Rx methocarbamoL [Methocarbamol] 1,000 mg PO TID PRN #20 tablet 01/28/21 Unknown Rx Allergies Allergy/AdvReac Type Severity Reaction Status Date / Time lisinopril Allergy Shortness Verified 12/12/18 18:26 of Breath ED Review of Systems ROS: Stated complaint: FALL Other details as noted in HPI Respiratory: denies: shortness of breath Cardiovascular: denies: chest pain Musculoskeletal: arthralgia. denies: joint swelling Neurological: denies: numbness, paresthesias ED Past Medical Hx - Past Medical History Previous Medical History?: Yes Hx Hypertension: Yes Hx Congestive Heart Failure: Yes Hx Diabetes: Yes Hx Asthma: No Hx COPD: No Additional medical history: chronic low back pain, herniated discs. enlarged heart. sleep apnea c CPAP, Defribilator - Surgical History Past Surgical History?: Yes Hx Pacemaker: Yes (defibrilator) Hx Internal Defibrillator: Yes Hx Cholecystectomy: Yes Additional Surgical History: tonsilectomy - Social History Smoking Status: Never Smoker Substance Use Type: Alcohol - Medications Home Medications: Home Medications Medication Instructions Recorded Confirmed Last Taken Type Apixaban [Eliquis] 5 mg PO Q12HR #60 tablet 12/15/18 08/01/19 Unknown Rx Ivabradine HCl [Corlanor] 5 mg PO BID 08/01/19 08/01/19 Unknown History Liraglutide [Victoza 2-Lee] 0.6 mg SQ QDAY 08/01/19 08/01/19 Unknown History Metoprolol Xl [Metoprolol 100 mg PO QDAY 08/01/19 08/01/19 Unknown History SUCCINATE ER TAB] Sacubitril/Valsartan [Entresto 1 tab PO DAILY 08/01/19 08/01/19 Unknown History 49-51 mg] Cyclobenzaprine [Flexeril] 10 mg PO TID PRN #12 tablet 10/31/19 Unknown Rx Famotidine [Pepcid] 20 mg PO BID #20 tablet 03/31/20 Unknown Rx Ondansetron [Zofran Odt] 4 mg PO Q8HR PRN #14 tab.rapdis 03/31/20 Unknown Rx HYDROcodone/APAP 5-325 [[place] 1 each PO Q6HR PRN #12 tablet 11/19/20 Unknown Rx 5-325 mg TAB] cephALEXin [Keflex] 500 mg PO Q6HR #40 capsule 11/19/20 Unknown Rx Naproxen 500 mg PO BID PRN #20 tablet 01/28/21 Unknown Rx methocarbamoL [Methocarbamol] 1,000 mg PO TID PRN #20 tablet 01/28/21 Unknown Rx ED Physical Exam - General Limitations: No Limitations General appearance: alert, in no apparent distress - Head Head exam: Present: atraumatic, normocephalic - Eye Eye exam: Present: normal appearance - Neck Neck exam: Present: normal inspection, full ROM. Absent: tenderness - Respiratory Respiratory exam: Present: normal lung sounds bilaterally. Absent: respiratory distress - Cardiovascular Cardiovascular Exam: Present: regular rate, normal rhythm - Expanded Upper Extremity Exam Left Shoulder Exam: Present: full ROM, tenderness over AC joint, other (Tenderness noted to the proximal biceps tendon without swelling or obvious deformity). Absent: swelling, ecchymosis, deformity Elbow exam: Present: normal inspection Forearm Wrist exam: Present: normal inspection Hand Wrist exam: Present: normal inspection Vascular: Absent: pulse deficit radial art, pulse deficit ulnar art - Neurological Exam Neurological exam: Present: alert, oriented X3, normal gait - Psychiatric Psychiatric exam: Present: normal affect, normal mood - Skin Skin exam: Present: warm, dry, intact, normal color. Absent: rash ED Course Vital Signs 01/27/21 18:52 Temperature 98.6 F Pulse Rate 88 Respiratory 18 Rate Blood Pressure 141/86 [Right] O2 Sat by Pulse 95 Oximetry ED Medical Decision Making - Radiology Data Radiology results: report reviewed LEFT SHOULDER 3 VIEW(S) INDICATION / CLINICAL INFORMATION: Fall left shoulder pain COMPARISON: None available. FINDINGS: BONES / JOINT(S): No acute fracture or subluxation. Mild degenerative changes. SOFT TISSUES: No significant abnormality. ADDITIONAL FINDINGS: None. - Medical Decision Making 50-year-old -[place] male patient presents with complaints of left shoulder pain after a fall injury 2 days ago. He states the pain occurs mostly with movement of the shoulder and denies any numbness/tingling/weakness in his arm or hand. Patient states his range of motion is limited by the pain. Pain worsened after taking a hot shower per patient. He denies any other injuries. Patient rates his pain as a 9/10 in severity and states it did not improve with Tylenol X-ray is normal. Will treat for shoulder sprain with NSAIDs and shoulder sling. Recommend follow-up with orthopedics as needed. Discussed signs and symptoms that should prompt immediate return to the emergency department in detail with patient who verbalizes understanding. Critical care attestation.: If time is entered above; I have spent that time in minutes in the direct care of this critically ill patient, excluding procedure time. ED Disposition Clinical Impression: Injury of left shoulder Qualifiers: Encounter type: initial encounter Qualified Code(s): S49.92XA - Unspecified injury of left shoulder and upper arm, initial encounter Disposition: TO HOME OR SELFCARE Is pt being admited?: No Condition: Stable Instructions: How to Use a Shoulder Immobilizer Prescriptions: methocarbamoL [Methocarbamol] 1,000 mg PO TID PRN #20 tablet PRN Reason: muscle spasm/tightness Naproxen 500 mg PO BID PRN #20 tablet PRN Reason: pain Referrals: EPHRAIM APPLE MD [Primary Care Provider] - 3-5 Days JONH FUNEZ MD [Staff Physician] - as needed
== END 2021-01-28 03:06 | disposition home or self-care (01) ==
LOC: ED 18:33
DX: S49.92XA Unspecified injury of left shoulder and upper arm, initial encounter (principal); I11.0 Hypertensive heart disease with heart failure; I50.9 Heart failure, unspecified; E11.9 Type 2 diabetes mellitus without complications; Z90.49 Acquired absence of other specified parts of digestive tract; Z90.89 Acquired absence of other organs; Z79.899 Other long term (current) drug therapy; Z88.8 Allergy status to other drugs, medicaments and biological substances; X58.XXXA Exposure to other specified factors, initial encounter; Y93.89 Activity, other specified; Y92.89 Other specified places as the place of occurrence of the external cause; Y99.8 Other external cause status
CPT/HCPCS: 73030; 96372; 99283; J1885

== ENCOUNTER 2021-03-13 15:20 | Emergency (ER) | payer OTHER ==
[2021-03-13] MEDS ORDERED: HEPARIN 10,000 UNITS/10 ML VIAL IV PRN (15:57)
--- NOTE | 2021-03-13 15:59 | Event Note ---
ED Screening Note Date of service: 03/13/21 Time: 15:58 ED Screening Note: 50-year-old male with a known history of A. fib presents to the ER today with complaints of shortness of breath and heart fluttering. He is currently on Eliquis and states that he has been compliant with it. This initial assessment/diagnostic orders/clinical plan/treatment(s) is/are subject to change based on patients health status, clinical progression and re- assessment by fellow clinical providers in the ED. Further treatment and workup at subsequent clinical providers discretion. Patient/guardian urged not to elope from the ED as their condition may be serious if not clinically assessed and managed. Initial orders include: Chest pain order set.
--- NOTE | 2021-03-13 16:37 | XRay Report ---
CHEST 2 VIEWS INDICATION: Dysrhythmia. COMPARISON: 10/31/2019 FINDINGS: Support devices: ICD in satisfactory position. Heart: Within normal limits. Lungs/Pleura: No acute air space or interstitial disease. No significant pleural effusion. IMPRESSION: No acute findings. Signer Name: Roshan Bunch MD Signed: 03/13/2021 4:33 PM Workstation Name: [id number]
[2021-03-13 16:40] LABS: Basophils # (Auto) 0.2 K/mm3 (0.0-0.1); Basophils % (Auto) 1.6 % (0.0-1.8); Eosinophils # (Auto) 0.2 K/mm3 (0.0-0.4); Eosinophils % (Auto) 1.9 % (0.0-4.3); Hematocrit 50.6 % (35.5-45.6); Hemoglobin 15.9 gm/dl (11.8-15.2); Lymphocytes # (Auto) 3.6 K/mm3 (1.2-5.4); Lymphocytes % (Auto) 38.7 % (13.4-35.0); Mean Corpuscular HGB Conc 32 % (32-34); Mean Corpuscular Volume 86 fl (84-94); Monocytes # (Auto) 0.8 K/mm3 (0.0-0.8); Platelet Count 292 K/mm3 (140-440); Red Blood Count 5.87 M/mm3 (3.65-5.03); Red Cell Distribution Width 16.4 % (13.2-15.2)
[2021-03-13 16:50] LABS: INR 1.05 (0.87-1.13)
[2021-03-13 16:51] LABS: Partial Thromboplastin Time 31.5 Sec. (24.2-36.6)
[2021-03-13 17:04] LABS: Alanine Aminotransferase 20 units/L (7-56); Albumin 4.4 g/dL (3.9-5); BUN/Creatinine Ratio 16; Blood Urea Nitrogen 16 mg/dL (9-20); Calcium 9.1 mg/dL (8.4-10.2); Hemolysis Index 17
--- NOTE | 2021-03-13 19:20 | Emergency Department Report ---
ED General Adult HPI - General Chief complaint: Arrhythmia/Palpitations Stated complaint: Heart racing, headache PUI?: No Time Seen by Provider: 03/13/21 19:18 Source: patient, RN notes reviewed, old records reviewed Mode of arrival: Ambulatory Limitations: No Limitations - History of Present Illness Initial comments: Cardiology: [facility]; Dr. Kenyon Past medical history: Dilated nonischemic cardiomyopathy, chronic systolic heart failure, as per documentation from July 2019, has had 2 cardiac catheterizat ions which were negative for coronary artery disease, last ejection fraction 20 to 25%, cardiac defibrillator in situ, paroxysmal A. fib, maintained on Eliquis, BMI 32, on CPAP. The patient is a 50-year-old gentleman. He presents to the ER with 2 complaints. His first complaint is a sensation of painless heart racing, feeling like his A. fib is "acting up again." The patient denies loss of vision, chest pain, abdominal pain, new/different shortness of breath. He is mostly compliant with his medications, but endorses sporadic noncompliance with Eliquis. He denies Covid symptomatology. He also complains of a headache. The headache is frontal and midline. The headache is not sudden or thunderclap in nature. The headache is not maximal intensity within an hour. The headache is not the worst headache of his life. There is no loss of vision. There is no midline neck pain. There is no extremity weakness/numbness. Headache was completely resolved with Reglan, and Tylenol. Rapid A. fib felt improved with Lopressor, IV, and orally. Patient reports that he does take metoprolol XL, and reports that his buyer liaison recently increased his dose a few weeks ago. He also reports that he is taking his diuretic pills "on a regular basis", and believes that he urinated "12 L of fluid today." -: Gradual Location: head Radiation: non-radiation Severity scale (0 -10): 0 Consistency: now resolved Improves with: medication Worsens with: none - Related Data Home Medications Medication Instructions Recorded Confirmed Last Taken Metoprolol Xl [Metoprolol 50 mg PO QDAY 08/01/19 03/13/21 Unknown SUCCINATE ER TAB] Insulin Aspart (Nf) [NovoLOG 100 30 units SQ AC 03/13/21 03/13/21 Unknown UNITS/ML VIAL] NovoLOG 100 UNITS/ML VIAL 15 units SQ HS 03/13/21 03/13/21 Unknown Torsemide [Demadex] 20 mg PO PRN PRN 03/13/21 03/13/21 Unknown Previous Rx's Medication Instructions Recorded Last Taken Type Apixaban [Eliquis] 5 mg PO Q12HR #60 tablet 12/15/18 Unknown Rx Allergies Allergy/AdvReac Type Severity Reaction Status Date / Time lisinopril Allergy Shortness Verified 12/12/18 18:26 of Breath ED Review of Systems ROS: Stated complaint: CHEST FLUTTER DISCOMFORT/HEADACHE Other details as noted in HPI Constitutional: other (Denies loss of taste and smell). denies: fever, malaise, weakness Eyes: denies: eye discharge ENT: denies: epistaxis Respiratory: shortness of breath (Chronic shortness of breath). denies: cough Cardiovascular: palpitations, edema. denies: chest pain, syncope Gastrointestinal: denies: abdominal pain, nausea, vomiting, hematemesis, melena, hematochezia Genitourinary: denies: dysuria Musculoskeletal: denies: back pain Neurological: headache. denies: weakness, numbness, paresthesias Hematological/Lymphatic: denies: easy bleeding ED Past Medical Hx - Past Medical History Previous Medical History?: Yes Hx Hypertension: Yes Hx Congestive Heart Failure: Yes Hx Diabetes: Yes Hx Asthma: No Hx COPD: No Additional medical history: chronic low back pain, herniated discs. enlarged heart. sleep apnea c CPAP, Defribilator - Surgical History Past Surgical History?: Yes Hx Pacemaker: Yes (defibrilator) Hx Internal Defibrillator: Yes Hx Cholecystectomy: Yes Additional Surgical History: tonsilectomy - Social History Smoking Status: Never Smoker Substance Use Type: Alcohol - Medications Home Medications: Home Medications Medication Instructions Recorded Confirmed Last Taken Type Apixaban [Eliquis] 5 mg PO Q12HR #60 tablet 12/15/18 08/01/19 Unknown Rx Metoprolol Xl [Metoprolol 50 mg PO QDAY 08/01/19 03/13/21 Unknown History SUCCINATE ER TAB] Insulin Aspart (Nf) [NovoLOG 100 30 units SQ AC 03/13/21 03/13/21 Unknown History UNITS/ML VIAL] NovoLOG 100 UNITS/ML VIAL 15 units SQ HS 03/13/21 03/13/21 Unknown History Torsemide [Demadex] 20 mg PO PRN PRN 03/13/21 03/13/21 Unknown History ED Physical Exam - General Limitations: No Limitations General appearance: alert, in no apparent distress - Head Head exam: Present: atraumatic, normocephalic - Eye Eye exam: Present: normal appearance, PERRL, EOMI, other (Visual acuity intact to finger counting, color perception, reading at a close distance). Absent: nystagmus - ENT ENT exam: Present: normal exam, normal orophraynx, mucous membranes moist, normal external ear exam - Neck Neck exam: Present: normal inspection, full ROM. Absent: tenderness, meningismus - Respiratory Respiratory exam: Present: normal lung sounds bilaterally. Absent: respiratory distress, wheezes, rales, rhonchi, stridor, decreased breath sounds - Cardiovascular Cardiovascular Exam: Present: tachycardia, irregular rhythm, normal heart sounds. Absent: systolic murmur, diastolic murmur, rubs, gallop - GI/Abdominal GI/Abdominal exam: Present: soft. Absent: distended, tenderness, guarding, rebound, rigid, pulsatile mass - Rectal Rectal exam: Present: deferred - Extremities Exam Extremities exam: Present: normal inspection, full ROM, pedal edema (1+ edema in the bilateral lower extremities), other (2+ pulses noted in the bilateral upper and lower extremities. There is no palpable cord. negative Homans sign. Muscular compartments are soft. The pelvis is stable.). Absent: calf t enderness - Back Exam Back exam: Present: normal inspection, full ROM. Absent: tenderness, CVA tenderness (R), CVA tenderness (L), paraspinal tenderness, vertebral tenderness - Neurological Exam Neurological exam: Present: alert, oriented X3, normal gait, other (There is no facial droop. The tongue is midline. Extraocular movements are intact bilaterally. There is 5 out of 5 strength in bilateral upper and lower ex tremities. Sensation is intact to light touch bilateral upper and lower extremities. There is no past-pointing. There is no pronator drift.). Absent: motor sensory deficit - Psychiatric Psychiatric exam: Present: normal affect, normal mood - Skin Skin exam: Present: warm, dry, intact, normal color. Absent: rash ED Course Vital Signs 06/21/21 06/21/21 06/21/21 15:45 19:30 19:43 Temperature 98.1 F Pulse Rate 60 91 H 103 H Respiratory 17 15 Rate Blood Pressure 121/84 121/84 Blood Pressure 102/66 [Right] O2 Sat by Pulse 97 98 Oximetry 03/13/21 03/13/21 03/13/21 19:44 20:30 20:46 Temperature Pulse Rate 103 H 110 H 103 H Respiratory 24 17 Rate Blood Pressure 121/84 124/85 124/85 Blood Pressure [Right] O2 Sat by Pulse 98 96 Oximetry 03/13/21 03/13/21 21:00 21:16 Temperature Pulse Rate 100 H 92 H Respiratory 12 Rate Blood Pressure 130/77 Blood Pressure [Right] O2 Sat by Pulse 96 Oximetry - Reevaluation(s) Reevaluation #1: 03/13/21 20:39 Differential diagnosis, including but not limited to: A. fib, RVR, medication noncompliance, migraine headache, tension headache, cluster headache, intracranial hemorrhage, electrolyte derangement, thyroid derangement, chronic congestive heart failure, not acutely decompensate Assessment and plan: 50-year-old gentleman with 2 complaints. Complaint #1, is A. fib with RVR. Initially rate 60 to 124 bpm. He is given 2.5 mg intravenously of Lopressor, and 50 mg of Lopressor orally. Heart rate mostly improved, to the high 90s and low 100s. He is saturating 100% on room air, and does not appear to be in any acute distress. Main issue here appears to be probable noncompliance, he is not especially hypertensive, and his chest x-ray does not show evidence of acute decompensated congestive heart failure. He does not endorse any acute respiratory symptoms at this time. Assuming we can achieve adequate rate control, we would consider him suitable to follow-up with his outpatient primary care doctor or buyer liaison. Complaint #2, headache. GCS 15, NIH score of 0. Medicated appropriately, given history of taking Eliquis, albeit sporadically, noncontrast CT scan of the brain obtained, negative for acute findings, and patient endorses complete resolution of headache symptomatology. Nursing team to medicate with an additional 2.5 mg of intravenous Lopressor, assuming tachycardia improved, consider this patient suitable for discharge with outpatient follow-up. The importance of medication compliance was articulated to the patient, who verbalized understanding. He also reports compliance with his CPAP. Denies trauma, chiropractic manipulation, recent motor vehicle accident 03/13/21 20:40 03/13/21 21:36 Patient resting comfortably. Heart rate 86 to 92 bpm. Blood pressure systolic 120. He is in no acute distress. He is suitable for discharge at this time with outpatient follow-up. ED Medical Decision Making - Lab Data Result diagrams: 03/13/21 16:19 03/13/21 16:19 Vital Signs 03/13/21 15:45 Temperature 98.1 F Pulse Rate 60 Respiratory 17 Rate Blood Pressure 102/66 [Right] O2 Sat by Pulse 97 Oximetry Lab Results 03/13/21 03/13/21 03/13/21 Range/Units 16:19 16:19 16:19 WBC 9.4 (4.5-11.0) K/mm3 RBC 5.87 H (3.65-5.03) M/mm3 Hgb 15.9 H (11.8-15.2) gm/dl Hct 50.6 H (35.5-45.6) % MCV 86 (84-94) fl MCH 27 L (28-32) pg MCHC 32 (32-34) % RDW 16.4 H (13.2-15.2) % Plt Count 292 (140-440) K/mm3 Lymph % (Auto) 38.7 H (13.4-35.0) % [place] % (Auto) 9.0 H (0.0-7.3) % Eos % (Auto) 1.9 (0.0-4.3) % Baso % (Auto) 1.6 (0.0-1.8) % Lymph # (Auto) 3.6 (1.2-5.4) K/mm3 [place] # (Auto) 0.8 (0.0-0.8) K/mm3 Eos # (Auto) 0.2 (0.0-0.4) K/mm3 Baso # (Auto) 0.2 H (0.0-0.1) K/mm3 Seg Neutrophils % 48.8 (40.0-70.0) % Seg Neutrophils # 4.6 (1.8-7.7) K/mm3 PT 14.2 (12.2-14.9) Sec. INR 1.05 (0.87-1.13) APTT 31.5 (24.2-36.6) Sec. Sodium 138 (137-145) mmol/L Potassium 3.9 (3.6-5.0) mmol/L Chloride 100.6 (98-107) mmol/L Carbon Dioxide 27 (22-30) mmol/L Anion Gap 14 mmol/L BUN 16 (9-20) mg/dL Creatinine 1.0 (0.8-1.3) mg/dL Estimated GFR > 60 ml/min BUN/Creatinine Ratio 16 % Glucose 207 H (75-100) mg/dL Calcium 9.1 (8.4-10.2) mg/dL Magnesium 1.70 (1.7-2.3) mg/dL Total Bilirubin 0.50 (0.1-1.2) mg/dL AST 27 (5-40) units/L ALT 20 (7-56) units/L Alkaline Phosphatase 70 (35-129) units/L Total Creatine Kinase 457 H (55-170) units/L CK-MB (CK-2) 2.0 (0.0-4.0) ng/mL CK-MB (CK-2) Rel Index 0.4 (0-4) Troponin T < 0.010 (0.00-0.029) ng/mL Total Protein 7.0 (6.3-8.2) g/dL Albumin 4.4 (3.9-5) g/dL Albumin/Globulin Ratio 1.7 % TSH (0.270-4.200) mlU/mL 03/13/ Range/Units 16:19 WBC (4.5-11.0) K/mm3 RBC (3.65-5.03) M/mm3 Hgb (11.8-15.2) gm/dl Hct (35.5-45.6) % MCV (84-94) fl MCH (28-32) pg MCHC (32-34) % RDW (13.2-15.2) % Plt Count (140-440) K/mm3 Lymph % (Auto) (13.4-35.0) % [place] % (Auto) (0.0-7.3) % Eos % (Auto) (0.0-4.3) % Baso % (Auto) (0.0-1.8) % Lymph # (Auto) (1.2-5.4) K/mm3 [place] # (Auto) (0.0-0.8) K/mm3 Eos # (Auto) (0.0-0.4) K/mm3 Baso # (Auto) (0.0-0.1) K/mm3 Seg Neutrophils % (40.0-70.0) % Seg Neutrophils # (1.8-7.7) K/mm3 PT (12.2-14.9) Sec. INR (0.87-1.13) APTT (24.2-36.6) Sec. Sodium (137-145) mmol/L Potassium (3.6-5.0) mmol/L Chloride (98-107) mmol/L Carbon Dioxide (22-30) mmol/L Anion Gap mmol/L BUN (9-20) mg/dL Creatinine (0.8-1.3) mg/dL Estimated GFR ml/min BUN/Creatinine Ratio % Glucose (75-100) mg/dL Calcium (8.4-10.2) mg/dL Magnesium (1.7-2.3) mg/dL Total Bilirubin (0.1-1.2) mg/dL AST (5-40) units/L ALT (7-56) units/L Alkaline Phosphatase (35-129) units/L Total Creatine Kinase (55-170) units/L CK-MB (CK-2) (0.0-4.0) ng/mL CK-MB (CK-2) Rel Index (0-4) Troponin T (0.00-0.029) ng/mL Total Protein (6.3-8.2) g/dL Albumin (3.9-5) g/dL Albumin/Globulin Ratio % TSH 0.922 (0.270-4.200) mlU/mL - EKG Data -: EKG Interpreted by [facility] Rate: tachycardia - EKG Data 03/13/21 20:38 EKG interpreted at 15: 50 A. fib, rate 124 bpm. Normal axis, QTC 476 ms, PVC, motion artifact. This is an abnormal EKG. This is not a STEMI. The EKG appears to be unchanged when compared to prior EKG from July 2017, with the exception that he is in A. fib at this time. - Radiology Data Radiology results: pending, report reviewed, image reviewed [address] [place] [address] XRay Report Signed Patient: HUNTER CUTLER MR#: [id number] 4 : 1970 Acct:[id number] Age/Sex: 50 / M ADM Date: 03/13/21 Loc: ED Attending Dr: Ordering Physician: CONNER EMERY Date of Service: 03/13/21 Procedure(s): XR chest routine 2V Accession Number(s): [id number] cc: CONNER EMERY Fluoro Time In Minutes: CHEST 2 VIEWS INDICATION: Dysrhythmia. COMPARISON: 10/31/2019 FINDINGS: Support devices: ICD in satisfactory position. Heart: Within normal limits. Lungs/Pleura: No acute air space or interstitial disease. No significant pleural effusion. IMPRESSION: No acute findings. Signer Name: Roshan Bunch MD Signed: 03/13/2021 4:33 PM Workstation Name: [id number] Transcribed By: ES Dictated By: Roshan Bunch MD Electronically Authenticated By: Roshan Bunch MD Signed Date/Time: 03/13/21 1633 DD/ 1631 CT head/brain wo con INDICATION / CLINICAL INFORMATION: 50 years Male; headache, a fib , on eliquis. TECHNIQUE: Routine CT head without contrast. All CT scans at this location are performed using CT dose reduction for ALARA by means of automated exposure control. COMPARISON: None. FINDINGS: BRAIN / INTRACRANIAL CONTENTS: No acute hemorrhage, mass effect, midline shift, hydrocephalus, or acute, large territorial infarct. No signs of significant atrophy or chronic infarct. No significant white matter abnormality seen. CRANIOCERVICAL JUNCTION: No significant abnormality. ORBITS: No significant abnormality of visualized orbits. SINUSES / MASTOIDS: Mild to moderate mucosal thickening in the ethmoids. ADDITIONAL FINDINGS: None. IMPRESSION: 1. No focal mass, hemorrhage, hydrocephalus, or acute, large territorial infarct. Signer Name: Ziggy Peres MD, III Signed: 03/13/2021 7:04 PM Workstation Name: [id number] Critical Care Time: Yes Critical care time in (mins) excluding proc time.: 35 Critical care attestation.: If time is entered above; I have spent that time in minutes in the direct care of this critically ill patient, excluding procedure time. ED Disposition Clinical Impression: Atrial fibrillation, Headache, Chronic congestive heart failure Disposition: - TO HOME OR SELFCARE Is pt being admited?: No Does the pt Need Aspirin: No Condition: Stable Additional Instructions: Please continue current outpatient medications. Please follow-up with your outpatient primary care doctor or buyer liaison within the next 3 to 5 days. Avoid consumption of Motrin, ibuprofen, Naprosyn, Aleve, alcohol, tobacco, recreational drugs, and make certain to use CPAP at night. In addition, make certain to get at least 7 to 8 hours of good quality uninterrupted sleep each day. Please return to the emergency room right away with new pain, worsened pain, migration of pain, projectile vomiting, change in mental status, confusion, inability to tolerate liquid feeds, new, worsened or different symptoms not present on the initial emergency room evaluation. Referrals: JESS KENYON MD [Staff Physician] - 3-5 Days Forms: Work/School Release Form(ED)
[2021-03-13] MEDS ORDERED: METOPROLOL TARTRATE 5 MG/5 ML INJ IV ONE ×2 (19:28→20:34)
[2021-03-13] MEDS ORDERED: ACETAMINOPHEN 325 MG TAB PO ONE (19:28)
[2021-03-13] MEDS ORDERED: METOCLOPRAMIDE 10 MG/2 ML INJ IV ONE (19:28)
[2021-03-13] MEDS ORDERED: METOPROLOL TARTRATE 50 MG TAB PO ONE (19:29)
--- NOTE | 2021-03-13 20:09 | Cat Scan Report ---
CT head/brain wo con INDICATION / CLINICAL INFORMATION: 50 years Male; headache, a fib , on eliquis. TECHNIQUE: Routine CT head without contrast. All CT scans at this location are performed using CT dos e reduction for ALARA by means of automated exposure control. COMPARISON: None. FINDINGS: BRAIN / INTRACRANIAL CONTENTS: No acute hemorrhage, mass effect, midline shift, hydrocephalus, or acu te, large territorial infarct. No signs of significant atrophy or chronic infarct. No significant whi te matter abnormality seen. CRANIOCERVICAL JUNCTION: No significant abnormality. ORBITS: No significant abnormality of visualized orbits. SINUSES / MASTOIDS: Mild to moderate mucosal thickening in the ethmoids. ADDITIONAL FINDINGS: None. IMPRESSION: 1. No focal mass, hemorrhage, hydrocephalus, or acute, large territorial infarct. Signer Name: Ziggy Peres MD, III Signed: 03/13/2021 8:04 PM Workstation Name: [id number]
[2021-03-13 21:55] VITALS: BP 128/87
--- NOTE | 2021-03-15 19:11 | Electrocardiograph Report ---
[facility] Test Date: 2021-03-13 Test Time: 15:50:03 Pat Name: HUNTER CUTLER Department: Room: Gender: M Ichthyologist: LEONARD : 1970 Requested By: CONNER EMERY Order Number: [id number] Reading MD: Micheline Steen Measurements Intervals [place] Rate: 124 P: MT: QRS: -7 QRSD: 81 T: 18 QT: 331 QTc: 476 Interpretive Statements Atrial fibrillation Ventricular premature complex Inferior infarct, old No previous ECG available for comparison Electronically Signed On 03-15-2021 19:11:31 EDT by Micheline Steen
== END 2021-03-13 21:57 | disposition home or self-care (01) ==
LOC: ED 15:20
DX: I48.91 Unspecified atrial fibrillation (principal); I11.0 Hypertensive heart disease with heart failure; I50.9 Heart failure, unspecified; E11.9 Type 2 diabetes mellitus without complications; Z90.49 Acquired absence of other specified parts of digestive tract; Z90.89 Acquired absence of other organs; Z98.890 Other specified postprocedural states; Z79.899 Other long term (current) drug therapy; Z79.4 Long term (current) use of insulin; Z88.8 Allergy status to other drugs, medicaments and biological substances
CPT/HCPCS: 36415; 70450; 71046; 80053; 82550; 82553; 83735; 84443; 84484; 85025; 85610; 85730; 93005; 96374; 96375; 96376; 99291; J2765